=== PATIENT | female | born 1960 | race Caucasian/White ===

== ENCOUNTER 2020-11-13 13:36 | Emergency (ER) | payer MEDICARE, OTHER ==
[~2020-11-13] VITALS: Ht 160 cm; Wt 108.9 kg
--- NOTE | 2020-11-13 13:38 | NUR ---
Dr oconnor at the bedside for MSE.
[2020-11-13] MEDS ORDERED: LORAZEPAM 2 MG/1 ML VIAL IM ONE (14:00)
[2020-11-13] MEDS ORDERED: LORAZEPAM 2 MG/1 ML VIAL ONE (14:08)
--- NOTE | 2020-11-13 15:01 | NUR ---
Pt states feeling better and not as anxious.
--- NOTE | 2020-11-13 15:11 | NUR ---
Patient discharged to home in stable condition. Written and verbal after care instructions given. Patient verbalizes understanding of instructions. Stressed follow up or return to ER for worsening s/s.
[2020-11-13 15:46] VITALS: BP 134/87
== END 2020-11-13 15:20 | disposition home or self-care (01) ==
LOC: ER 13:36
DX: F41.0 Panic disorder [episodic paroxysmal anxiety] (principal); R03.0 Elevated blood-pressure reading, without diagnosis of hypertension
CPT/HCPCS: 96372; 99283; J2060; A4663

== ENCOUNTER 2020-12-21 11:30 | Inpatient (IN) | payer MEDICARE, OTHER ==
[~2020-12-21] VITALS: Ht 160 cm; Wt 112.9 kg
--- NOTE | 2020-12-21 11:30 | NUR ---
[facility] private ambulance from [facility] ER for voluntary admission to [facility]. Pt has already been medically cleared at sending facility per EMT report. Pt arrives calm/cooperative and denies any SI/HI on arrival.
--- NOTE | 2020-12-21 11:42 | NUR ---
[facility] is here for eval for voluntary admission to [facility].
--- NOTE | 2020-12-21 12:13 | NUR ---
Pt signed admission form for voluntary admission to MHU, witnessed by Larissa.
--- NOTE | 2020-12-21 12:15 | NUR ---
Per pt is medically clear for admission to MHU.
[2020-12-21] MEDS ORDERED: METO25TA6 PO (12:28)
[2020-12-21] MEDS ORDERED: RISP2TAB85 PO (12:28)
[2020-12-21] MEDS ORDERED: MIRT-93 PO (12:28)
[2020-12-21] MEDS ORDERED: ATOR20TA PO (12:28)
[2020-12-21] MEDS ORDERED: LEVO75TA7 PO (12:28)
[2020-12-21] MEDS ORDERED: DIVA500T54 PO (12:28)
[2020-12-21] MEDS ORDERED: BUSP10TA3 PO (12:28)
[2020-12-21] MEDS ORDERED: METF-440 PO (12:28)
[2020-12-21] MEDS ORDERED: GABA-536 PO (12:28)
--- NOTE | 2020-12-21 13:25 | NUR ---
SBAR report given to MARC Funez via telephone. Pt resting with NAD noted.
--- NOTE | 2020-12-21 13:30 | NUR ---
Admitted a 60 yrs old patient from ER ,patient is alert and oriented x4, was place on voluntary due to depression . patient reports that she was lives in a shared room with other people,she has being feeling unhappy for the last 2 weeks due to feeling isolative and not getting along with the people she lives with.patient feels hopeless and helpless she wants to be place in a assisted living after discharge from MHU. patient able to ambulating independently ,no skin breakdown noted.vital sign stable.Dr. zapata who covered for Dr. Jasso made aware
[2020-12-21] MEDS ORDERED: MAGNESIUM HYDROXIDE 30 ML LIQUID UDC PO PRN (14:30)
[2020-12-21] MEDS ORDERED: ACETAMINOPHEN 325 MG TABLET PO PRN (14:30)
[2020-12-21 15:47] VITALS: BP 125/96
[2020-12-21] MEDS ORDERED: METOPROLOL TARTRATE 25 MG TABLET PO SCH (17:00)
[2020-12-21 19:59] VITALS: BP 118/70
[2020-12-21] MEDS: METOPROLOL TARTRATE 25 MG TABLET PO SCH (20:46)
[2020-12-21] MEDS: TEMAZEPAM 7.5 MG CAPSULE PO PRN (21:36)
--- NOTE | 2020-12-21 21:40 | NUR ---
RECEIVED PATIENT IN HER ROOM IN BED. SHE IS NOTED A/O X 3 ABLE TO VERBALIZED FEELINGS. SHE IS NOTED WITH LOW MOOD, ANXIOUS AND WITHDRAWN. SHE STATED, "I GET PANIC ATTACKS". SHE ALSO ADDED, "I HAVEN'T SLEEP IN 3 DAYS, AND I AM ANXIOUS ALL THE TIME". PATIENT WAS ALSO ASKED IF WAS FEELINGS SUICIDAL, SHE STATED, "I THINK ABOUT IT AT TIMES BUT I DON'T WANT TO , I DON'T HAVE A PLAN". PATIENT WAS REASSURED FOR HER SAFETY, SAFETY AND FALL PRECAUTION ARE IN PLACE. PATIENT IS ABLE TO VERBALLY CFS, DENIAL IS CONVINCING. SHE WAS OFFERED PO FLUIDS AND SNACKS. SHE WAS GIVEN TEMAZEPAM 7/5 MG FOR SLEEP. HER V/S ARE STABLE, WILL CONTINUE TO MONITOR.
[2020-12-21] MEDS: LORAZEPAM 1 MG TABLET PO PRN (23:56)
--- NOTE | 2020-12-22 | NUR ---
PATIENT NOTED IN THE DAY ROOM UNABLE TO SLEEP, AND ANXIOUS. ATIVAN 1MG PO PRN WAS GIVEN, SHE WAS ALSO GIVEN MILK. WILL CONTINUE TO MONITOR SLEEP PATTERS.
[2020-12-22 07:53] LABS: BILIRUBIN,TOTAL 0.3 mg/dL (0.2-1.0); CREATININE 1.1 mg/dL (0.6-1.3); POTASSIUM 4.3 mmol/L (3.5-5.1)
[2020-12-22 07:59] VITALS: BP 120/67
[2020-12-22] MEDS: METFORMIN HCL 500 MG TABLET PO SCH ×2 (08:18→17:13)
[2020-12-22] MEDS: METOPROLOL TARTRATE 25 MG TABLET PO SCH ×2 (08:19→20:47)
[2020-12-22] MEDS: LEVOTHYROXINE SODIUM 75 MCG TABLET PO SCH (08:22)
[2020-12-22] MEDS ORDERED: ATORVASTATIN 20 MG TABLET PO SCH ×2 (09:00)
[2020-12-22 16:00] VITALS: BP 97/67
[2020-12-22] MEDS: DIVALPROEX 250 MG TABLET.DR PO SCH ×2 (17:13→20:45)
[2020-12-22] MEDS: GABAPENTIN 400 MG CAPSULE PO SCH ×3 (17:13→20:46)
[2020-12-22] MEDS: busPIRone 10 MG TABLET PO SCH (17:15)
--- NOTE | 2020-12-22 18:17 | NUR ---
patient is alert and oriented x3, pacing in hallway ,compliant with all medication ,feels hopeless and helpless denies any SI,patient is seen and check by .will continue close monitoring.
[2020-12-22 20:07] VITALS: BP 112/64
[2020-12-22] MEDS: PRAZOSIN HCL 1 MG CAPSULE PO SCH (20:45)
[2020-12-22] MEDS: ATORVASTATIN 20 MG TABLET PO SCH (20:46)
[2020-12-22] MEDS: MIRTAZAPINE 15 MG TABLET PO SCH (20:46)
[2020-12-22] MEDS: TRAZODONE 50 MG TABLET PO SCH (20:46)
--- NOTE | 2020-12-22 22:00 | NUR ---
received to care, isolative,and depressed. but likes to be around select female peers, and watched tv with them, before retiring for the evening. continues to deny feeling suicidal. verbally contracted with staff to let them know if suicidal ideations return. monitored for a safe environment. compliant with medications, and tx plan. was curious about her medications, so all Meds were brought to her still in the package, so each one could be explained to her. she was very receptive to this intervention, and was agreeable about all medications being given. snacks and fresh water was given. as of 2200, she appears to be asleep. no distress noted. will continue to monitor closely.
--- NOTE | 2020-12-23 06:00 | NUR ---
slept 7 hours, total. continues to sleep. no distress noted.
[2020-12-23] MEDS: LEVOTHYROXINE SODIUM 75 MCG TABLET PO SCH (06:53)
[2020-12-23 08:00] VITALS: BP 122/71
[2020-12-23] MEDS: METFORMIN HCL 500 MG TABLET PO SCH ×2 (08:26→16:35)
[2020-12-23] MEDS: DIVALPROEX 250 MG TABLET.DR PO SCH ×2 (08:26→20:09)
[2020-12-23] MEDS: GABAPENTIN 400 MG CAPSULE PO SCH ×4 (08:26→20:10)
[2020-12-23] MEDS: METOPROLOL TARTRATE 25 MG TABLET PO SCH ×2 (08:28→20:10)
[2020-12-23] MEDS: busPIRone 10 MG TABLET PO SCH ×3 (09:14→16:35)
--- NOTE | 2020-12-23 10:09 | NUR ---
ANJANA Initial Discharge Plan: Pt currently resides at [address] [place], [place] [address]; ([phone]). Pt would want to return back home upon dc. ANJANA offered pt SNF options, however, pt refused. ANJANA contacted patient's mother Matilde ([phone]) and phone number did not ring. ANJANA will coordinate with pt and MD for proper discharge.
[2020-12-23 16:09] VITALS: BP 129/73
--- NOTE | 2020-12-23 18:19 | NUR ---
patient denies any SI/HI remains isolative no interaction with other peers,compliant with all medication.vital sign stable.
[2020-12-23] MEDS: TRAZODONE 50 MG TABLET PO SCH (20:09)
[2020-12-23] MEDS: MIRTAZAPINE 15 MG TABLET PO SCH (20:09)
[2020-12-23] MEDS: ATORVASTATIN 20 MG TABLET PO SCH (20:09)
[2020-12-23] MEDS: PRAZOSIN HCL 1 MG CAPSULE PO SCH (20:10)
[2020-12-23 20:16] VITALS: BP 118/79
[2020-12-24] MEDS: TEMAZEPAM 7.5 MG CAPSULE PO PRN ×2 (01:18→22:49)
[2020-12-24 05:49] LABS: *BILIRUBIN,URIN NEGATIVE (NEGATIVE); *BLOOD, URINE NEGATIVE (NEGATIVE); *CLARITY,URINE CLOUDY (CLEAR); *COLOR,URINE YELLOW (YELLOW); *KETONES,URINE NEGATIVE (NEGATIVE); *UROBILINOGEN,URINE 0.2 E.U./dl (NORMAL); LEUKOCYTE ESTERASE ,URINE 2+ (NEGATIVE); NITRITE, URINE NEGATIVE (NEGATIVE); PH,URINE 5.5 (5.0-8.0); UGLUCOSE NEGATIVE (NEGATIVE)
[2020-12-24] MEDS: LEVOTHYROXINE SODIUM 75 MCG TABLET PO SCH (06:04)
[2020-12-24 06:05] LABS: BACTERIA,URINE NONE SEEN /HPF (NONE SEEN); RBC,URINE 0-3 /HPF (0-3); SQUAMOUS EPITHELIAL CELL,UR FEW /HPF (NONE SEEN); WBC,URINE 20-50 /HPF (0-3)
--- NOTE | 2020-12-24 06:33 | NUR ---
GPS: Pt.slept for 5.15 last night. Anxious,depressed,overwhelmed,but denies wanting to hurt self. Re-assured prn. Safe environment provided. Encouraged to attend groups during the day. Needs attended. Will continue to monitor.
[2020-12-24 07:30] VITALS: BP 105/63
--- NOTE | 2020-12-24 07:30 | NUR ---
Received report from VIC Smith. All questions, comments, and concerns were addressed. Received patient resting quietly in her assigned bed. Bed is in low and locked position.
[2020-12-24] MEDS: GABAPENTIN 400 MG CAPSULE PO SCH ×4 (08:22→20:49)
[2020-12-24] MEDS: METFORMIN HCL 500 MG TABLET PO SCH ×2 (08:22→17:31)
[2020-12-24] MEDS: METOPROLOL TARTRATE 25 MG TABLET PO SCH ×2 (08:22→20:46)
[2020-12-24] MEDS: DIVALPROEX 250 MG TABLET.DR PO SCH ×2 (08:22→20:49)
[2020-12-24] MEDS: busPIRone 10 MG TABLET PO SCH ×3 (08:22→16:45)
--- NOTE | 2020-12-24 14:17 | NUR ---
SW Note: SW spoke with patient and stated that she is accepted to [facility] and she agreed.
--- NOTE | 2020-12-24 14:21 | NUR ---
SNF Contact: SW received a call from Sami stern from [facility] who stated that pt is accepted.
--- NOTE | 2020-12-24 16:00 | NUR ---
SW Individual Intervention: highway maintenance crew worker met with patient for individual therapy. highway maintenance crew worker provided brief counseling and evaluated patients presenting problem depression. Patient expressed that she came in due to increased thoughts of self-harm. Patient stated that she didnt sleep for four days and her anxiety and depression was high. Patient said she rented a room from a family but often felt isolated. Patient stated, it was giving me panic attacks staying in my room all day. Patient stated that her new medicine and being at the hospital was improving her depression and no longer had thoughts of self-harm. highway maintenance crew worker assessed for current suicidal ideation, pt denied. highway maintenance crew worker provided emotional support in terms of her decision to admit herself to the hospital as a voluntary patient. Patient thanked the dialysis social worker for checking in with her. highway maintenance crew worker will continue to be available for ongoing support. Patient is aware of her treatment and discharge plan and is open to continuing her care at a nursing facility.
[2020-12-24 16:41] VITALS: BP 110/49
[2020-12-24] MEDS: CEphaleXIN 500 MG CAPSULE PO SCH (16:45)
--- NOTE | 2020-12-24 17:56 | NUR ---
Patient is alert and oriented. Patient is highly anxious and restless, but is cooperative, redirectable, and has appropriate interaction with others. Patient at times sitting in the day room watching television. Patient denies suicidal and homicidal ideation. She states that her main concern is poor sleep. Patient is compliant with medications, no adverse reaction noted. Ambulates independently. Patient is able to perform self care and ADL's independently. Patient encouraged to communicate needs to staff, educated about impulse control, and encouraged to participate in the unit groups and therapeutic milieu.
[2020-12-24 20:46] VITALS: BP 112/53
[2020-12-24] MEDS: TRAZODONE 50 MG TABLET PO SCH (20:49)
[2020-12-24] MEDS: ATORVASTATIN 20 MG TABLET PO SCH (20:50)
[2020-12-24] MEDS: PRAZOSIN HCL 1 MG CAPSULE PO SCH (20:50)
[2020-12-24] MEDS: MIRTAZAPINE 15 MG TABLET PO SCH (20:50)
[2020-12-25] MEDS: LEVOTHYROXINE SODIUM 75 MCG TABLET PO SCH (06:19)
[2020-12-25 07:30] VITALS: BP 90/48
[2020-12-25] MEDS: METOPROLOL TARTRATE 25 MG TABLET PO SCH ×2 (09:00→20:29)
[2020-12-25] MEDS: DIVALPROEX 250 MG TABLET.DR PO SCH ×2 (10:15→20:28)
[2020-12-25] MEDS: CEphaleXIN 500 MG CAPSULE PO SCH ×2 (10:15→20:29)
[2020-12-25] MEDS: busPIRone 10 MG TABLET PO SCH ×3 (10:15→17:07)
[2020-12-25] MEDS: GABAPENTIN 400 MG CAPSULE PO SCH ×4 (10:17→20:28)
[2020-12-25] MEDS: METFORMIN HCL 500 MG TABLET PO SCH ×2 (10:20→17:07)
[2020-12-25 15:34] VITALS: BP 122/79
--- NOTE | 2020-12-25 17:56 | NUR ---
GPS: pt alert and verbally responsive. pt denies any pain. cooperative with care and tolerated medications given. pt with no signs of SI. pt goes to dining room and watch tv and interacts with some of the pt.
[2020-12-25 20:00] VITALS: BP 125/70
[2020-12-25] MEDS: ATORVASTATIN 20 MG TABLET PO SCH (20:28)
[2020-12-25] MEDS: TRAZODONE 50 MG TABLET PO SCH (20:32)
[2020-12-25] MEDS: PRAZOSIN HCL 1 MG CAPSULE PO SCH (20:33)
[2020-12-25] MEDS: MIRTAZAPINE 15 MG TABLET PO SCH (20:33)
[2020-12-25] MEDS: TEMAZEPAM 7.5 MG CAPSULE PO PRN (23:13)
[2020-12-26] MEDS: LORAZEPAM 1 MG TABLET PO PRN (01:26)
[2020-12-26 07:30] VITALS: BP 105/58
[2020-12-26] MEDS: busPIRone 10 MG TABLET PO SCH ×3 (08:43→18:22)
[2020-12-26] MEDS: LEVOTHYROXINE SODIUM 75 MCG TABLET PO SCH (08:43)
[2020-12-26] MEDS: GABAPENTIN 400 MG CAPSULE PO SCH ×4 (08:43→21:51)
[2020-12-26] MEDS: DIVALPROEX 250 MG TABLET.DR PO SCH ×2 (08:43→21:53)
[2020-12-26] MEDS: METFORMIN HCL 500 MG TABLET PO SCH ×2 (08:43→18:23)
[2020-12-26] MEDS: CEphaleXIN 500 MG CAPSULE PO SCH ×2 (08:43→21:57)
[2020-12-26] MEDS: METOPROLOL TARTRATE 25 MG TABLET PO SCH ×2 (08:46→21:53)
[2020-12-26 17:12] VITALS: BP 117/62
--- NOTE | 2020-12-26 18:00 | NUR ---
received to care at this hour, watching tv, denies suicidal thoughts, but still feels depressed. no interactions with peers. compliant with medications, assisted to all needs.
[2020-12-26 20:13] VITALS: BP 100/62
[2020-12-26] MEDS: ATORVASTATIN 20 MG TABLET PO SCH (21:51)
[2020-12-26] MEDS: MIRTAZAPINE 15 MG TABLET PO SCH (21:51)
[2020-12-26] MEDS: PRAZOSIN HCL 1 MG CAPSULE PO SCH (21:52)
[2020-12-26] MEDS: TRAZODONE 50 MG TABLET PO SCH (21:53)
--- NOTE | 2020-12-26 22:00 | NUR ---
received to care, pleasant upon approach. denies current suicidal thoughts, but states she still feels depressed. also admits to having SI, upon admission. agreed to contract for safety, while in hospital. we discussed the trazadone dose, which was adjusted, and she was hpoin gto sleep better, tonight. remains awake, in bed. will continue to monitor closely.
[2020-12-27] MEDS: TEMAZEPAM 7.5 MG CAPSULE PO PRN ×2 (00:36→22:41)
--- NOTE | 2020-12-27 00:36 | NUR ---
PRN restoril given for insomnia
--- NOTE | 2020-12-27 01:00 | NUR ---
appears to be asleep. no distress noted.
--- NOTE | 2020-12-27 06:00 | NUR ---
slept 7.5 hours. continues to sleep. no distress noted.
[2020-12-27] MEDS: LEVOTHYROXINE SODIUM 75 MCG TABLET PO SCH (06:51)
[2020-12-27 07:30] VITALS: BP 128/75
[2020-12-27] MEDS: GABAPENTIN 400 MG CAPSULE PO SCH ×4 (08:37→21:08)
[2020-12-27] MEDS: METFORMIN HCL 500 MG TABLET PO SCH ×2 (08:37→18:05)
[2020-12-27] MEDS: METOPROLOL TARTRATE 25 MG TABLET PO SCH ×2 (08:37→21:08)
[2020-12-27] MEDS: CEphaleXIN 500 MG CAPSULE PO SCH ×2 (08:37→21:20)
[2020-12-27] MEDS: busPIRone 10 MG TABLET PO SCH ×3 (08:37→16:18)
[2020-12-27] MEDS: DIVALPROEX 250 MG TABLET.DR PO SCH ×2 (08:37→21:08)
--- NOTE | 2020-12-27 11:26 | NUR ---
Gps/Reinforcement Maker- Encouraged eating in the dinning room during meals, isolative , limited interactions with peers, making her simple needs known
--- NOTE | 2020-12-27 15:00 | NUR ---
Gps/Panman-Noted patient in the activity room, watching TV and interacting with her peer.
[2020-12-27 16:00] VITALS: BP 107/68
[2020-12-27 20:00] VITALS: BP 122/75
[2020-12-27] MEDS: PRAZOSIN HCL 1 MG CAPSULE PO SCH (21:07)
[2020-12-27] MEDS: MIRTAZAPINE 15 MG TABLET PO SCH (21:07)
[2020-12-27] MEDS: ATORVASTATIN 20 MG TABLET PO SCH (21:08)
[2020-12-27] MEDS: TRAZODONE 50 MG TABLET PO SCH (21:09)
--- NOTE | 2020-12-27 22:00 | NUR ---
received to care, sitting in TV room, isolative, pleasant upon approach, no interactions with peers. she states she is concerned about still having difficulty sleeping, and that the doctor is planning on discharging her soon. 1;1 interactions and emotional support provided. she was encouraged to discuss her concerns with MD in the morning, when he makes rounds, and to ask for PRN medication, if she cant sleep, by 2230. assisted to all needs.
[2020-12-27] MEDS: LORAZEPAM 1 MG TABLET PO PRN (23:58)
--- NOTE | 2020-12-28 00:30 | NUR ---
PRN restoril was given at 2240, for insomnia. at 2357, she was still awake, so she was given PRN ativan at that time, for anxiety, at her request. as of 29, she appears to be sleep. no distress noted. will continue to monitor closely.
--- NOTE | 2020-12-28 06:00 | NUR ---
slept 8 hours, total. continues to sleep. no distress noted.
[2020-12-28] MEDS: LEVOTHYROXINE SODIUM 75 MCG TABLET PO SCH (07:21)
[2020-12-28 07:30] VITALS: BP 102/60
[2020-12-28] MEDS: METFORMIN HCL 500 MG TABLET PO SCH ×2 (08:19→17:15)
[2020-12-28] MEDS: DIVALPROEX 250 MG TABLET.DR PO SCH ×2 (08:19→20:26)
[2020-12-28] MEDS: CEphaleXIN 500 MG CAPSULE PO SCH ×2 (08:19→20:26)
[2020-12-28] MEDS: GABAPENTIN 400 MG CAPSULE PO SCH ×4 (08:19→20:26)
[2020-12-28] MEDS: busPIRone 10 MG TABLET PO SCH ×3 (08:20→16:46)
[2020-12-28] MEDS: METOPROLOL TARTRATE 25 MG TABLET PO SCH ×2 (08:21→20:29)
--- NOTE | 2020-12-28 13:30 | NUR ---
Gps/Trust Manager Assistant-- Stayed in her group therapy , min. interactions noted, making simple needs known to the staff, continue to be meds. compliant. Had complained of mild h/a as well as per on her lower ext. prn tylenol 650 mg po was given w/ min. results.
[2020-12-28 16:00] VITALS: BP 107/66
[2020-12-28 20:00] VITALS: BP 114/73
[2020-12-28] MEDS: ATORVASTATIN 20 MG TABLET PO SCH (20:25)
[2020-12-28] MEDS: PRAZOSIN HCL 1 MG CAPSULE PO SCH (20:28)
[2020-12-28] MEDS: MIRTAZAPINE 15 MG TABLET PO SCH (20:28)
[2020-12-28] MEDS ORDERED: TRAZODONE 50 MG TABLET PO SCH (21:00)
[2020-12-28] MEDS: TEMAZEPAM 7.5 MG CAPSULE PO PRN (22:28)
[2020-12-29] MEDS: LEVOTHYROXINE SODIUM 75 MCG TABLET PO SCH (06:20)
[2020-12-29 07:47] VITALS: BP 101/48
[2020-12-29] MEDS: CEphaleXIN 500 MG CAPSULE PO SCH (08:48)
[2020-12-29] MEDS: METFORMIN HCL 500 MG TABLET PO SCH ×2 (08:48→17:43)
[2020-12-29] MEDS: METOPROLOL TARTRATE 25 MG TABLET PO SCH ×2 (08:48→20:43)
[2020-12-29] MEDS: busPIRone 10 MG TABLET PO SCH ×3 (08:48→16:21)
[2020-12-29] MEDS: DIVALPROEX 250 MG TABLET.DR PO SCH ×2 (08:48→20:40)
[2020-12-29] MEDS: GABAPENTIN 400 MG CAPSULE PO SCH ×4 (08:48→20:39)
[2020-12-29] MEDS: LORAZEPAM 1 MG TABLET PO PRN (11:20)
[2020-12-29 16:11] VITALS: BP 104/57
[2020-12-29 20:22] VITALS: BP 108/61
[2020-12-29] MEDS: TRAZODONE 100 MG TABLET PO SCH (20:39)
[2020-12-29] MEDS: MIRTAZAPINE 15 MG TABLET PO SCH (20:40)
[2020-12-29] MEDS: ATORVASTATIN 20 MG TABLET PO SCH (20:40)
[2020-12-29] MEDS: PRAZOSIN HCL 1 MG CAPSULE PO SCH (20:44)
--- NOTE | 2020-12-29 22:00 | NUR ---
PATIENT TRANSFERRED FROM MENTAL HEALTH OVERFLOW. A/O X3. DENIES PAIN. VSS. ALL NEEDS ATTENDED. WILL CONTINUE TO MONITOR AND ASSESS.
[2020-12-29] MEDS: TEMAZEPAM 7.5 MG CAPSULE PO PRN (22:39)
--- NOTE | 2020-12-29 22:40 | NUR ---
PATIENT GIVEN RESTORIL 7.5MG.
--- NOTE | 2020-12-30 05:41 | NUR ---
PATIENT SLEPT 6 HOURS AND 45 MIN. ALL NEEDS ATTENDED.
[2020-12-30] MEDS: LEVOTHYROXINE SODIUM 75 MCG TABLET PO SCH (06:23)
[2020-12-30 08:00] VITALS: BP 114/55
--- NOTE | 2020-12-30 08:00 | NUR ---
Received report from plant operator/shift supervisor RN. pt is alert and oriented x 4, ambulatory with BRP. Pt is on room air, consistant carb diet. comfort measures provided. call light within reach, bed low and locked. no signs of distress observed.
[2020-12-30] MEDS: GABAPENTIN 400 MG CAPSULE PO SCH ×4 (08:05→20:28)
[2020-12-30] MEDS: busPIRone 10 MG TABLET PO SCH ×3 (08:06→17:12)
[2020-12-30] MEDS: DIVALPROEX 250 MG TABLET.DR PO SCH ×2 (08:06→20:28)
[2020-12-30] MEDS: METFORMIN HCL 500 MG TABLET PO SCH ×2 (08:06→17:12)
[2020-12-30] MEDS: METOPROLOL TARTRATE 25 MG TABLET PO SCH ×2 (08:14→20:30)
[2020-12-30 16:00] VITALS: BP 119/78
--- NOTE | 2020-12-30 18:30 | NUR ---
GPS: Nursing Notes: Geropsych/Overflow To Room # 141-B: Patient is awake and responding to her name, cooperative with nursing care, A/Ox4, R=18, denies any discomfort or pain, depressed mood and blunted affect, believes that she is getting better with her medications, continue to monitor for safety, oriented to her new room, continue with treatment plan.
[2020-12-30] MEDS: TRAZODONE 100 MG TABLET PO SCH (20:28)
[2020-12-30] MEDS: MIRTAZAPINE 15 MG TABLET PO SCH (20:28)
[2020-12-30] MEDS: ATORVASTATIN 20 MG TABLET PO SCH (20:28)
[2020-12-30] MEDS ORDERED: TEMAZEPAM 7.5 MG CAPSULE PO PRN (20:30)
[2020-12-30 20:43] VITALS: BP 100/66
[2020-12-30] MEDS: TEMAZEPAM 15 MG CAPSULE PO PRN (23:07)
[2020-12-31] MEDS: LEVOTHYROXINE SODIUM 75 MCG TABLET PO SCH (06:14)
[2020-12-31 07:30] VITALS: BP 94/53
[2020-12-31] MEDS: METOPROLOL TARTRATE 25 MG TABLET PO SCH ×2 (09:00→20:49)
[2020-12-31] MEDS: DIVALPROEX 250 MG TABLET.DR PO SCH ×2 (09:13→20:49)
[2020-12-31] MEDS: GABAPENTIN 400 MG CAPSULE PO SCH ×4 (09:14→20:50)
[2020-12-31] MEDS: METFORMIN HCL 500 MG TABLET PO SCH ×2 (09:15→16:27)
[2020-12-31] MEDS: busPIRone 10 MG TABLET PO SCH ×3 (09:20→16:28)
[2020-12-31 16:00] VITALS: BP 100/53
[2020-12-31] MEDS: MAG HYDROX/AL HYDROX/SIMETH 30 ML LIQUID UDC PO PRN (20:28)
[2020-12-31] MEDS: MIRTAZAPINE 15 MG TABLET PO SCH (20:49)
[2020-12-31] MEDS: ATORVASTATIN 20 MG TABLET PO SCH (20:50)
[2020-12-31] MEDS: TRAZODONE 100 MG TABLET PO SCH (20:50)
--- NOTE | 2020-12-31 22:00 | NUR ---
received to care, isolative, but pleasant upon approach. compliant with medications. no distress noted.
[2020-12-31 22:13] VITALS: BP 112/84
[2020-12-31] MEDS: TEMAZEPAM 15 MG CAPSULE PO PRN (23:29)
--- NOTE | 2020-12-31 23:29 | NUR ---
PRN restoril given for insomnia
--- NOTE | 2021-01-01 00:30 | NUR ---
appears to be asleep. no distress noted.
[2021-01-01] MEDS: LORAZEPAM 0.5 MG TABLET PO PRN ×2 (01:42→23:18)
--- NOTE | 2021-01-01 01:42 | NUR ---
PRN ativan given for anxiety.
--- NOTE | 2021-01-01 02:30 | NUR ---
appears to be asleep. no distress noted.
--- NOTE | 2021-01-01 06:00 | NUR ---
slept 8.5 hours
[2021-01-01] MEDS: LEVOTHYROXINE SODIUM 75 MCG TABLET PO SCH (06:50)
[2021-01-01 07:30] VITALS: BP 100/55
[2021-01-01] MEDS: METOPROLOL TARTRATE 25 MG TABLET PO SCH ×2 (09:00→20:29)
[2021-01-01] MEDS: DIVALPROEX 250 MG TABLET.DR PO SCH ×2 (09:31→20:29)
[2021-01-01] MEDS: GABAPENTIN 400 MG CAPSULE PO SCH ×4 (09:31→20:30)
[2021-01-01] MEDS: METFORMIN HCL 500 MG TABLET PO SCH ×2 (09:32→17:10)
[2021-01-01] MEDS: busPIRone 10 MG TABLET PO SCH ×3 (09:33→16:40)
--- NOTE | 2021-01-01 15:30 | NUR ---
Gps/Touch Up Painter Hand- Stayed in the activity room during the day, min. interactions with peers. Ordered Covid antigen swab. Discharged planning for tomorrow as noted , patient was well informed
[2021-01-01 17:13] VITALS: BP 108/79
[2021-01-01 20:00] VITALS: BP 113/68
[2021-01-01] MEDS: ATORVASTATIN 20 MG TABLET PO SCH (20:29)
[2021-01-01] MEDS: TRAZODONE 100 MG TABLET PO SCH (20:29)
[2021-01-01] MEDS: MIRTAZAPINE 15 MG TABLET PO SCH (20:29)
[2021-01-01] MEDS: TEMAZEPAM 15 MG CAPSULE PO PRN (21:35)
[2021-01-01] MEDS: MAG HYDROX/AL HYDROX/SIMETH 30 ML LIQUID UDC PO PRN (21:41)
--- NOTE | 2021-01-01 22:00 | NUR ---
received to care, in tv room, no interactions with peers. able to make needs known. has good insight into her condition and discharge plans. compliant with medications and staff direction. PRN restoril given for insomnia. as of now, she is sleeping intermittently. no distress noted.
--- NOTE | 2021-01-01 23:17 | NUR ---
PRN ativan, given for anxiety.
--- NOTE | 2021-01-01 23:40 | NUR ---
appears to be sleeping soundly. no distress noted.
--- NOTE | 2021-01-02 04:00 | NUR ---
was restless, unable to sleep. sat up in the activity room, reading for an hour or so, then went back to sleep.
--- NOTE | 2021-01-02 06:00 | NUR ---
lept 4 hours. continues to sleep. no distress noted.
[2021-01-02] MEDS: LEVOTHYROXINE SODIUM 75 MCG TABLET PO SCH (06:51)
[2021-01-02 07:30] VITALS: BP 98/50
[2021-01-02] MEDS: DIVALPROEX 250 MG TABLET.DR PO SCH (08:51)
[2021-01-02] MEDS: GABAPENTIN 400 MG CAPSULE PO SCH (08:51)
[2021-01-02] MEDS: busPIRone 10 MG TABLET PO SCH (08:51)
[2021-01-02] MEDS: METFORMIN HCL 500 MG TABLET PO SCH (08:52)
[2021-01-02 08:54] VITALS: BP 98/50
[2021-01-02] MEDS: METOPROLOL TARTRATE 25 MG TABLET PO SCH (08:54)
--- NOTE | 2021-01-02 09:03 | NUR ---
ANJANA Discharge Note: Patient will be discharged to shelter facility to [facility] [place] [address]; ) via ambulance transportation at 11am. Retail Agent spoke with Anthony stern and CJ State Comptroller at [facility]; ([phone]), who stated patient will be accepted at facility today. Patient is alert and oriented x3 and is not able to plan for self-care at this time but is willing to accept care provided for her at the facility. Patient denies any suicidal or homicidal ideations. Patient is aware and agreeable with discharge plans. Patient does not have any family members. SW contacted patients mother Matilde ([phone]) and was unable to leave a voicemail. Patient will continue to follow-up with her Psychiatrist Dr. Hou and Loan Auditor Dr. Fernandez at [facility]. Patient presents with euthymic mood and congruent affect.
--- NOTE | 2021-01-02 10:43 | NUR ---
Gps/Statement Distribution Clerk- Called [facility] at [facility], report was given to Rn Connor Camejo. ,Patient was well informed about her discharged. Ambulance thru[facility] was arranged, roll picker time [phone] .
--- NOTE | 2021-01-02 11:29 | NUR ---
Gps/Geological Engineering Teacher- A;ll belongings given back to patient, denies any discomfort, no pain. Denmaria teresas S.I./no H.I. patient in good spirit, attended her group therapy.
[2021-01-02] MEDS ORDERED: METOPROLOL TARTRATE 25 MG TABLET PO SCH (21:00)
== END 2021-01-02 11:45 | DRG 885 ==
LOC: ER 11:30 → GPS 12:29 → GPSOV3 12-29 21:32 → GPS 12-30 18:20
PROVIDERS: ADMIT Psychiatry & Neurology Psychiatry; ATTEND Nurse Practitioner Acute Care
DX: F31.30 Bipolar disorder, current episode depressed, mild or moderate severity, unspecified (principal); N39.0 Urinary tract infection, site not specified; R45.851 Suicidal ideations; Z68.41 Body mass index [BMI] 40.0-44.9, adult; E44.0 Moderate protein-calorie malnutrition; F41.1 Generalized anxiety disorder; E11.9 Type 2 diabetes mellitus without complications; E78.5 Hyperlipidemia, unspecified; E03.9 Hypothyroidism, unspecified; E66.9 Obesity, unspecified; I10 Essential (primary) hypertension; Z79.84 Long term (current) use of oral hypoglycemic drugs; Z79.899 Other long term (current) drug therapy; Z90.710 Acquired absence of both cervix and uterus; F43.10 Post-traumatic stress disorder, unspecified; Z20.822 Contact with and (suspected) exposure to COVID-19
CPT/HCPCS: 36415; 87086; 97161; A4663; J3490